=== PATIENT | female | born 1995 | race American Indian/Alaskan Native ===

== ENCOUNTER 2017-12-31 18:06 | Emergency (ER) | payer SELFPAY ==
--- NOTE | 2017-12-31 20:08 | ED PDOC ---
Lower Extremity Pain/Injury Time Seen by Provider: 12/31/17 18:20 Chief Complaint (Nursing): Lower Extremity Problem/Injury Chief Complaint (Provider): knee pain History Per: Patient History/Exam Limitations: no limitations Onset/Duration Of Symptoms: Days (4 months) Additional Complaint(s): Swati Pandya, a 22 year old female with past medical history of asthma, presents to the ED with knee pain. Patient states she has an ACL tear diagnosed in September 2017 for which she has not been able to receive definitive treatment due to cost and insurance. She presents to the ED via ambulance after feeling sudden knee pain when attempting to stand from a high stool at work. Patient reports at the time of the acute knee pain she had tingling in her right foot which has resolved. She denies anesthesia, paresthesia in right foot, acute trauma, fever, chills, weakness. No further medical complaints. Past Medical History Reviewed: Historical Data, Nursing Documentation, Vital Signs Vital Signs: Last Vital Signs Temp 98.1 F 12/31/17 18:08 Pulse 85 12/31/17 18:08 Resp 16 12/31/17 18:08 BP 122/76 12/31/17 18:08 Pulse Ox 98 12/31/17 18:08 - Medical History PMH: Asthma - Family History Family History: States: Unknown Family Hx - Home Medications Home Medications: Ambulatory Orders Medication Instructions Recorded Ibuprofen [Motrin Tab] 600 mg PO Q6H PRN 7 Days tab 12/31/17 - Allergies Allergies/Adverse Reactions: Allergies Allergy/AdvReac Type Severity Reaction Status Date / Time No Known Allergies Allergy Verified 12/31/17 18:07 Review of Systems ROS Statement: Except As Marked, All Systems Reviewed And Found Negative Constitutional: Negative for: Fever, Chills Musculoskeletal: Positive for: Leg Pain (right knee pain) Physical Exam - Reviewed Nursing Documentation Reviewed: Yes Vital Signs Reviewed: Yes - Physical Exam Appears: Positive for: Well, Non-toxic, No Acute Distress Head Exam: Positive for: ATRAUMATIC, NORMAL INSPECTION, NORMOCEPHALIC Cardiovascular/Chest: Positive for: Regular Rate, Rhythm Respiratory: Positive for: CNT, Normal Breath Sounds Extremity: Positive for: Other (right knee: no edema ecchymosis or erythema, minimal pain of medial and lateral aspect of knee). Negative for: Normal ROM (slightly decreased with flection of right knee, normal extension, normal flection and extension of ankle and phalanges ), Deformity (knee or ankle) - ECG O2 Sat by Pulse Oximetry: 98 (RA) Pulse Ox Interpretation: Normal Medical Decision Making Medical Decision Making: Time: 18:20 Initial Impression: Initial Plan: --Ibuprofen 600 mg PO -explained to patient that given lack of fracture trauma to right knee xray will likely not be beneficial as patient w known ACL tear, she will need to follow up with orthopedist for further treatment and MRI for definitive treatment, patient understanding, knee immobilizer Scribe Attestation: Documented by Agnieszka Conroy, acting as a scribe for Catalina Shahid PA-C. Provider Scribe Attestation: All medical record entries made by the Scribe were at my direction and personally dictated by me. I have reviewed the chart and agree that the record accurately reflects my personal performance of the history, physical exam, medical decision making, and the department course for this patient. I have also personally directed, reviewed, and agree with the discharge instructions and disposition. Disposition - Clinical Impression Clinical Impression: Knee pain - Patient ED Disposition Is Patient to be Admitted: No - Disposition Referrals: [facility] [place] [Outside] Disposition: Routine/Home Disposition Time: 20:53 Condition: STABLE Additional Instructions: Please f/u with orthopedist as you will need further treatment for known ACL tear. Use Ibuprofen for pain. Keep knee immobilizer on for the next few days while ambulating. Prescriptions: Ibuprofen [Motrin Tab] 600 mg PO Q6H PRN 7 Days tab PRN Reason: Pain, Moderate (4-7) Instructions: Chronic Knee Pain (DC) Forms: [employer] ([place]i) Print Language: [place]
[2017-12-31 20:54] VITALS: BP 128/78; PULSE 71; RESP 18; TEMP 98
[2018-01-01 01:07] VITALS: O2SAT 98
== END 2017-12-31 20:53 | disposition home or self-care (01) ==
LOC: H.ER 18:06
DX: M25.561 Pain in right knee (principal)